=== PATIENT | female | born 1945 | race Caucasian/White ===

== ENCOUNTER → 2019-11-29 | Outpatient (CLI) | payer MEDICARE ==
[~2019-11-29] MED LIST: ACET-1600 PO; IBUP-1902 PO
== END | disposition home or self-care (01) ==
LOC: STAR 15:17
PROVIDERS: ATTEND Orthopaedic Surgery
DX: Z01.818 Encounter for other preprocedural examination (principal); M94.261 Chondromalacia, right knee
CPT/HCPCS: 93005

== ENCOUNTER 2019-12-08 12:47 | Day surgery (SDC) | payer MEDICARE ==
[~2019-12-08] VITALS: Ht 165.1 cm; Wt 96.0 kg
[~2019-12-08 12:47] MED LIST changes: +BUPIVACAINE/PF-EPI 0.5% 1:200K ONE; +LIDOCAINE/PF 1%-EPI 1:200K, 30 ML ONE
[2019-12-08] MEDS ORDERED: LACTATED RINGERS 1,000 ML IV SCH (13:24)
[2019-12-08] MEDS ORDERED: CHLORHEXIDINE 15 ML UDC MM ONE (13:30)
[2019-12-08] MEDS ORDERED: LIDOCAINE-MPF 1%, 2ML INFIL ONE (13:30)
[2019-12-08] MEDS ORDERED: CHLORHEXIDINE 15 ML UDC ONE (13:32)
[2019-12-08] MEDS ORDERED: FENTANYL PF 100 MCG/2ML ONE ×2 (13:56→15:49)
[2019-12-08] MEDS ORDERED: ACETAMINOPHEN 325 MG TABLET PO PRN (14:00)
[2019-12-08] MEDS ORDERED: OXYcodone 5 MG/5 ML ORAL.SOL UDC PO PRN (14:00)
[2019-12-08] MEDS ORDERED: PROMETHAZINE 25 MG/ML, 1ML IVPush PRN (14:00)
[2019-12-08] MEDS ORDERED: hydrALAzine 20 MG/ML, 1ML IV PRN (14:00)
[2019-12-08] MEDS ORDERED: ALBUTEROL SULFATE 2.5 MG/3 ML NPPB PRN (14:00)
[2019-12-08] MEDS ORDERED: MIDAZOLAM 1 MG/ML, 2ML IV PRN (14:00)
[2019-12-08] MEDS ORDERED: MEPERIDINE/PF 25MG/0.5ML IVPush PRN (14:00)
[2019-12-08] MEDS ORDERED: LABETALOL 5MG/ML, 20ML IV PRN (14:00)
[2019-12-08] MEDS ORDERED: LIDOCAINE-MPF 2% ,5ML ONE (15:39)
[2019-12-08] MEDS ORDERED: PROPOFOL 10 MG/ML, 20ML ONE (15:40)
[2019-12-08] MEDS ORDERED: DEXAMETHASONE 4 MG/ML, 1ML ONE (15:40)
[2019-12-08] MEDS ORDERED: CEFAZOLIN 1,000 MG ONE (15:40)
[2019-12-08] MEDS ORDERED: ONDANSETRON 2MG/ML, 2ML ONE (15:40)
[2019-12-08] MEDS ORDERED: OXYcodone 5 MG/5 ML ORAL.SOL UDC ONE (15:49)
[2019-12-08] MEDS: FENTANYL PF 100 MCG/2ML IV PRN ×2 (15:50→15:55)
== END 2019-12-08 17:10 | disposition home or self-care (01) ==
LOC: OUT 12:47
PROVIDERS: ATTEND Orthopaedic Surgery
DX: S83.271A Complex tear of lateral meniscus, current injury, right knee, initial encounter (principal); Z11.59 Encounter for screening for other viral diseases; S83.241A Other tear of medial meniscus, current injury, right knee, initial encounter; M22.41 Chondromalacia patellae, right knee; M19.90 Unspecified osteoarthritis, unspecified site; M81.0 Age-related osteoporosis without current pathological fracture; E66.01 Morbid (severe) obesity due to excess calories; Z79.899 Other long term (current) drug therapy; Z79.1 Long term (current) use of non-steroidal anti-inflammatories (NSAID); Z87.891 Personal history of nicotine dependence; Z90.49 Acquired absence of other specified parts of digestive tract; Z90.710 Acquired absence of both cervix and uterus; Z98.51 Tubal ligation status; Z82.61 Family history of arthritis; Z82.49 Family history of ischemic heart disease and other diseases of the circulatory system; X58.XXXA Exposure to other specified factors, initial encounter; Y93.89 Activity, other specified; Y92.89 Other specified places as the place of occurrence of the external cause; Y99.8 Other external cause status
CPT/HCPCS: 29880; 36415; 87635; J0690; J1100; J2405; J2704; J3010; J3490; J7120